=== PATIENT | male | born 2000 | race Caucasian/White ===

== ENCOUNTER 2024-11-18 10:31 | Emergency (ER) | payer OTHER ==
[2024-11-18] MEDS ORDERED: Boostrix 0.5 ML (Tdap) VIAL (>/=7 yrs of age) ONE (11:18)
[2024-11-18] MEDS ORDERED: Bacitracin 1 PK ONE (11:18)
[2024-11-18 11:28] LABS: Glucose, Urine (Dipstick) Negative (Negative); Leukocyte Negative (Negative); Protein, Urine (Dipstick) Negative (Neg-Trace); Specific Gravity, Urine 1.015 (1.005-1.030)
[2024-11-18 11:36] LABS: Bacteria/HPF Rare-Few HPF (None Seen); CAUTI Indications for Culture Alt mental st,lethar; RBC/HPF 0-3 HPF (0-3); WBC/HPF 0-3 HPF (0-3)
[2024-11-18 11:37] LABS: Urine Culture Reflex No No
[2024-11-18 11:38] LABS: Cocaine Metabolite Screen Negative (Negative); THC/Cannabinoid Screen PRELIM POSITIVE (Negative); Tricyclic Screen Negative (Negative)
== END 2024-11-18 13:51 | disposition home or self-care (01) ==
LOC: BURERS 10:31
DX: S21.332A Puncture wound without foreign body of left front wall of thorax with penetration into thoracic cavity, initial encounter (principal); S31.131A Puncture wound of abdominal wall without foreign body, left upper quadrant without penetration into peritoneal cavity, initial encounter; S71.131A Puncture wound without foreign body, right thigh, initial encounter; F17.210 Nicotine dependence, cigarettes, uncomplicated; Y35.833A Legal intervention involving a conducted energy device, suspect injured, initial encounter; Z23 Encounter for immunization
CPT/HCPCS: 70450; 80306; 81001; 90471; 90715